=== PATIENT | female | born 1965 | race Caucasian/White ===

== ENCOUNTER 2017-02-06 08:00 | Outpatient (CLI) | payer BC | END 2017-02-06 08:01 | disposition home or self-care (01) | LOC: BICMAMMO 08:00 | PROVIDERS: ATTEND Family Medicine | DX: Z12.31 Encounter for screening mammogram for malignant neoplasm of breast (principal) | CPT/HCPCS: 77066; G0204; G0279 ==

== ENCOUNTER 2017-05-19 10:12 | Outpatient (CLI) | payer BC | END 2017-05-19 10:13 | disposition home or self-care (01) | LOC: BICRAD 10:12 | PROVIDERS: ATTEND Family Medicine | DX: S39.92XA Unspecified injury of lower back, initial encounter (principal) | CPT/HCPCS: 72220 ==

== ENCOUNTER 2017-06-23 14:14 | Outpatient (CLI) | payer BC | END 2017-06-23 14:15 | disposition home or self-care (01) | LOC: BICRAD 14:14 | PROVIDERS: ATTEND Family Medicine | DX: S32.10XD Unspecified fracture of sacrum, subsequent encounter for fracture with routine healing (principal) | CPT/HCPCS: 72220 ==

== ENCOUNTER 2018-02-09 11:22 | Outpatient (CLI) | payer BC | END 2018-02-09 11:23 | disposition home or self-care (01) | LOC: BICMAMMO 11:22 | PROVIDERS: ATTEND Family Medicine | DX: Z12.31 Encounter for screening mammogram for malignant neoplasm of breast (principal) | CPT/HCPCS: 77063; 77067 ==

== ENCOUNTER 2018-05-07 14:56 | Outpatient (CLI) | payer BC ==
--- NOTE | 2018-05-07 15:56 | ULT ---
RIGHT BREAST ULTRASOUND: Date: 05/07/18 HISTORY: Injury, right breast lump and skin discoloration. FINDINGS: Correlation is made to mammogram from same date. Sonographic evaluation of the region of palpable concern at the 11 o'clock position of the right stefani st demonstrates a 1.7 x 0.8 x 1.5 cm nonshadowing oval hyperechoic lesion, likely hematoma/contusion. IMPRESSION: BI-RADS Category 3 - Probably benign findings. A follow-up right breast ultrasound is recommended in 3 months. The facility will notify patient of need for additional imaging services. POS: OFF
--- NOTE | 2018-05-07 18:23 | MMO ---
Right Breast MAMMO Unilat Diag [facility]. CLINICAL HISTORY: Patient is 53 years old and is seen for diagnostic exam. The patient has no family history of breast cancer. The patient has no personal history of cancer. VIEWS: The views performed were: right craniocaudal with tomosynthesis; right mediolateral oblique with tomosynthesis; and right mediolateral. FILMS COMPARED: The present examination has been compared to prior imaging studies performed at [facility] on 01/31/2012, 02/01/2013, 02/02/2014, 02/03/2015, 02/06/2016, 09/13/2016, 02/06/2017, 02/09/2018 and 05/07/2018, and at [facility] on 09/07/2009, 10/12/2010 and 04/11/2011. MAMMOGRAM FINDINGS: There are scattered fibroglandular densities. There are no suspicious masses, calcifications or areas of architectural distortion. Ultrasound was performed. IMPRESSION: FINDING IN THE RIGHT BREAST REQUIRES ADDITIONAL EVALUATION. AN ULTRASOUND EXAM IS RECOMMENDED. THE RESULTS OF THIS EXAM WERE SENT TO THE PATIENT. ACR BI-RADS Category 0 - Incomplete: Need additional imaging evaluation. [facility] will notify the patient of the need for additional imaging services. MAMMOGRAPHY NOTE: 1. A negative mammogram report should not delay a biopsy if a dominant of clinically suspicious mass is present. 2. Approximately 10% to 15% of breast cancers are not detected by mammography. 3. Adenosis and dense breasts may obscure an underlying neoplasm.
== END 2018-05-07 14:57 | disposition home or self-care (01) ==
LOC: BICMAMMO 14:56
PROVIDERS: ATTEND Family Medicine
DX: N63.10 Unspecified lump in the right breast, unspecified quadrant (principal)
CPT/HCPCS: G0279

== ENCOUNTER 2018-06-01 08:56 | Outpatient (CLI) | payer BC ==
--- NOTE | 2018-06-01 09:48 | ULT ---
FUS Renal Bilateral STANDARD History: [D 30.01, angiomyolipoma of right kidney] Comparison: CT examination May 2016 Findings: Real-time grayscale and color evaluation of the kidneys and urinary bladder was performed. The right kidney measures 11.7 x 5.3 x 5.4 cm and left kidney measures 11 x 5.2 x 5.4 cm. There is a 0.6 x 0.8 cm hyperechoic mass superior pole right kidney corresponding to the known angiomyolipoma. T here is an exophytic left cortical hypodensity measuring 6 mm. Urinary bladder is unremarkable. Impression: 1. Slight interval size increase right superior renal cortical angiomyolipoma. 2. Hypodensity, exophytic, interpolar left kidney measuring 6 mm may reflect a complex cyst. Follow-u p ultrasound in 6 months is recommended.
== END 2018-06-01 08:57 | disposition home or self-care (01) ==
LOC: BICULT 08:56
PROVIDERS: ATTEND Urology
DX: D17.71 Benign lipomatous neoplasm of kidney (principal); N28.1 Cyst of kidney, acquired
CPT/HCPCS: 36415; 76770; 80048; 81001; 87086

== ENCOUNTER 2018-10-29 07:57 | Outpatient (CLI) | payer BC ==
--- NOTE | 2018-10-29 08:53 | ULT ---
LIMITED RIGHT BREAST ULTRASOUND: CLINICAL HISTORY: Short-term followup for prior breast injury manifestation which was inclusive of lump and posttraumat ic discoloration. FINDINGS: Localized sonographic imaging at the 11 o'clock location reveals resolution of prior focus of altered echotexture. There is no sonographic abnormality present. IMPRESSION: BIRADS 2: Benign Finding(s) Routine annual screening mammography (for women over age 40), benign findings. The patient should return to bilateral screening mammography which is due in 3 months based on data p rior screening mammogram. POS: OFF
== END 2018-10-29 07:58 | disposition home or self-care (01) ==
LOC: BICULT 07:57
PROVIDERS: ATTEND Family Medicine
DX: N63.11 Unspecified lump in the right breast, upper outer quadrant (principal); N64.89 Other specified disorders of breast

== ENCOUNTER 2019-02-11 11:46 | Outpatient (CLI) | payer BC ==
--- NOTE | 2019-02-11 12:38 | MMO ---
Bilateral MAMMO Bilat Screen [facility]. CLINICAL HISTORY: Patient is 53 years old and is seen for screening. The patient has no family history of breast cancer. The patient has no personal history of cancer. VIEWS: The views performed were: bilateral craniocaudal with tomosynthesis and bilateral mediolateral oblique with tomosynthesis. FILMS COMPARED: The present examination has been compared to prior imaging studies performed at [facility] on 02/09/2018, 05/07/2018 and 10/29/2018. This study has been interpreted with the assistance of computer-aided detection. MAMMOGRAM FINDINGS: There are scattered fibroglandular densities. There are no suspicious masses, suspicious calcifications, or new areas of architectural distortion. IMPRESSION: THERE IS NO MAMMOGRAPHIC EVIDENCE OF MALIGNANCY. A ROUTINE FOLLOW-UP MAMMOGRAM IN 1 YEAR IS RECOMMENDED. THE RESULTS OF THIS EXAM WERE SENT TO THE PATIENT. ACR BI-RADS Category 1 - Negative MAMMOGRAPHY NOTE: 1. A negative mammogram report should not delay a biopsy if a dominant of clinically suspicious mass is present. 2. Approximately 10% to 15% of breast cancers are not detected by mammography. 3. Adenosis and dense breasts may obscure an underlying neoplasm. Reported by: RHIANNA LAROSE MD Electonically Signed: [id number]
== END 2019-02-11 11:47 | disposition home or self-care (01) ==
LOC: BICMAMMO 11:46
DX: Z12.31 Encounter for screening mammogram for malignant neoplasm of breast (principal)
CPT/HCPCS: 77063; 77067

== ENCOUNTER 2020-04-28 13:02 | Outpatient (CLI) | payer BC ==
[2020-04-29 02:22] LABS: SARS-CoV-2 PCR by NAA Not Detected (NotDetected)
== END 2020-04-28 13:03 | disposition home or self-care (01) ==
LOC: LABBT 13:02
PROVIDERS: ATTEND Internal Medicine Gastroenterology
DX: Z20.822 Contact with and (suspected) exposure to COVID-19 (principal)
CPT/HCPCS: 87635; U0003; U0005

== ENCOUNTER → 2020-05-03 | Day surgery (SDC) | payer BC | LOC: SDC 07:51 | PROVIDERS: ATTEND Internal Medicine Gastroenterology | DX: T28.0XXA Burn of mouth and pharynx, initial encounter (principal); K21.9 Gastro-esophageal reflux disease without esophagitis; R63.5 Abnormal weight gain; Z68.34 Body mass index [BMI] 34.0-34.9, adult; Z87.891 Personal history of nicotine dependence; Z79.899 Other long term (current) drug therapy | CPT/HCPCS: 91034 ==

== ENCOUNTER 2020-05-30 17:34 | Outpatient (CLI) | payer BC ==
[2020-05-31 06:02] LABS: SARS-CoV-2 PCR by NAA Not Detected (NotDetected)
== END 2020-05-30 17:35 | disposition home or self-care (01) ==
LOC: LABBT 17:34
PROVIDERS: ATTEND Surgery
DX: Z01.812 Encounter for preprocedural laboratory examination (principal); K21.9 Gastro-esophageal reflux disease without esophagitis; K44.9 Diaphragmatic hernia without obstruction or gangrene; Z20.822 Contact with and (suspected) exposure to COVID-19
CPT/HCPCS: 87635; U0003; U0005

== ENCOUNTER → 2020-06-02 | Day surgery (SDC) | payer BC | LOC: SDC 08:33 | PROVIDERS: ATTEND Surgery | DX: K21.9 Gastro-esophageal reflux disease without esophagitis (principal); K44.9 Diaphragmatic hernia without obstruction or gangrene; R31.29 Other microscopic hematuria; Z79.899 Other long term (current) drug therapy; Z87.891 Personal history of nicotine dependence | CPT/HCPCS: 91010 ==

== ENCOUNTER 2020-06-21 08:57 | Outpatient (CLI) | payer BC ==
[2020-06-21 10:20] LABS: #Eosinphils 0.1 10x3/uL (0.0-0.5); #Monocytes 0.4 10x3/uL (0.0-1.1); #Neutrophils 2.3 10x3/uL (1.5-8.4); %Basophils 0.4 % (0.0-2.0); %Eosinophils 2.9 % (0.0-6.0); %Lymphocytes 39.3 % (18.0-47.0); %Monocytes 8.2 % (0.0-10.0); %Neutrophils 48.8 % (40.0-75.0); Hemoglobin 13.8 g/dL (12.0-15.5); Mean Corpuscular HGB CONC 33.3 g/dL (32.0-36.0); Mean Corpuscular Hemoglobin 28.6 pg (27.0-33.0); Mean Corpuscular Volume 86.1 fl (81.6-98.3); Mean Platelet Volume 10.7 fl (7.4-10.4); Platelet Count 216 10x3/uL (150-450); RBC Distribution Width 12.3 % (11.5-14.5); Red Blood Cell (RBC) Count 4.82 10x6/uL (3.90-5.03); White Blood Cell (WBC) Count 4.8 10x3/uL (3.5-10.5)
[2020-06-21 10:23] LABS: ALT (SGPT) 17 U/L (8-55); AST (SGOT) 15 U/L (5-34); Albumin 4.4 g/dL (3.5-5.0); Alkaline Phosphatase 58 U/L (40-110); Anion Gap 11 mmol/L (10-20); BUN (Urea Nitrogen) 10 mg/dL (9.8-20.1); Bilirubin, Total 0.3 mg/dL (0.2-1.2); Calc. Creatinine Clearance 0 mL/min (70-130); Calcium 9.2 mg/dL (7.8-10.44); Carbon Dioxide 26 mmol/L (22-29); Chloride 105 mmol/L (98-107); Globulin 2.5 g/dL (2.4-3.5); Glucose 90 mg/dL (70-105); Protein, Total 6.9 g/dL (6.0-8.3); Sodium 138 mmol/L (136-145)
[2020-06-21 18:20] LABS: SARS-CoV-2 PCR by NAA Not Detected (NotDetected)
== END 2020-06-21 08:58 | disposition home or self-care (01) ==
LOC: LABBT 08:57
PROVIDERS: ATTEND Surgery
DX: Z01.818 Encounter for other preprocedural examination (principal); K21.9 Gastro-esophageal reflux disease without esophagitis; Z20.822 Contact with and (suspected) exposure to COVID-19
CPT/HCPCS: 80053; 85025; 87635; 93005; 93010; U0003; U0005

== ENCOUNTER 2020-06-26 05:59 | Observation (INO) | payer BC ==
[2020-06-23 09:39] VITALS: BMI 34.1
[2020-06-26] MEDS ORDERED: Bupivacaine 0.25% HCL 30 ML VIAL ONE (06:38)
[2020-06-26] MEDS ORDERED: Lidocaine 1% w/Epinephrine 1:100K 20 ML VIAL ONE (06:38)
[2020-06-26] MEDS ORDERED: Fentanyl 100 MCG/2 ML VIAL ONE ×4 (06:44→11:14)
[2020-06-26] MEDS ORDERED: Lidocaine 2% Jelly 5 ML TUBE ONE (06:44)
[2020-06-26] MEDS ORDERED: Midazolam HCl 2 mg/2 ml Vial ONE (07:08)
[2020-06-26] MEDS ORDERED: Ondansetron PF 4 MG/2 ML Vial ONE (07:32)
[2020-06-26] MEDS ORDERED: Ketorolac Tromethamine 30 MG/ML VIAL ONE (07:32)
[2020-06-26] MEDS ORDERED: Lidocaine 1% PF 5 ML VIAL ONE (07:32)
[2020-06-26] MEDS ORDERED: Glycopyrrolate 0.2 MG/ML 5 ML SYRINGE ONE (07:32)
[2020-06-26] MEDS ORDERED: PHENYLEPHRINE-NS 100 MCG/ML 10 ML SYRINGE ONE (07:32)
[2020-06-26] MEDS ORDERED: ePHEDrine Sulfate 50 MG/10 ML VIAL ONE (07:32)
[2020-06-26] MEDS ORDERED: PROPOFOL 200 MG/20 ML VIAL ONE (07:32)
[2020-06-26] MEDS ORDERED: Rocuronium Bromide 10 MG/ML (10ML VIAL) ONE (07:32)
[2020-06-26] MEDS ORDERED: Dexamethasone 20 MG/5 ML VIAL ONE (07:32)
[2020-06-26] MEDS ORDERED: Hydrocodone-Acetamin 15 ML UDCUP PO PRN (08:55)
[2020-06-26] MEDS ORDERED: hydrALAZINE 20 MG/ML VIAL SLOW IVP PRN (08:55)
[2020-06-26] MEDS ORDERED: Morphine 4 MG/ML VIAL SLOW IVP PRN (08:55)
[2020-06-26] MEDS ORDERED: Morphine 2 MG/ML VIAL SLOW IVP PRN (08:55)
[2020-06-26] MEDS ORDERED: Dextrose 5% in Water 1,000 ML IV PRN (08:55)
[2020-06-26] MEDS ORDERED: diphenhydrAMINE 50 MG/ML VIAL IVP PRN (08:55)
[2020-06-26] MEDS ORDERED: Ondansetron PF 4 MG/2 ML Vial IVP PRN (08:55)
[2020-06-26] MEDS ORDERED: Dextrose 50% Abboject 50 ML SYRINGE SLOW IVP PRN (08:55)
[2020-06-26] MEDS ORDERED: Promethazine HCl 25 MG/ML VIAL IM PRN ×2 (08:55→09:13)
[2020-06-26] MEDS ORDERED: Promethazine HCl 25 MG/ML VIAL SLOW IVP PRN (09:13)
[2020-06-26] MEDS ORDERED: Ondansetron HCl/PF 4 MG/2 ML Vial IVP PRN (09:13)
[2020-06-26] MEDS ORDERED: Sodium Chloride 0.9% (PF) 10 ML VIAL FS PRN (09:30)
[2020-06-26] MEDS: D5 1/2 NS w/20 mEq KCL 1,000 ML IV SCH ×2 (12:20→20:37)
[2020-06-26] MEDS: Ketorolac Tromethamine 30 MG/ML VIAL IVP SCH ×3 (12:21→23:01)
[2020-06-26] MEDS: Pantoprazole 40 MG VIAL IVP SCH (12:21)
[2020-06-26] MEDS: CEFAZOLIN 2 GM in Premix Bag 1 BAG IVPB SCH ×2 (15:05→23:01)
[2020-06-26] MEDS: Acetaminophen 500 MG TAB PO PRN (23:58)
[2020-06-27] MEDS: D5 1/2 NS w/20 mEq KCL 1,000 ML IV SCH ×2 (03:16→09:57)
[2020-06-27] MEDS: Ketorolac Tromethamine 30 MG/ML VIAL IVP SCH ×2 (05:00→11:28)
[2020-06-27 05:24] LABS: #Monocytes 0.6 thou/uL (0.11-0.59); #Neutrophils 5.1 thou/uL (1.40-6.50); %Basophils 0.2 % (0.0-1.0); %Eosinophils 0.2 % (0.0-10.0); %Lymphocytes 26.2 % (21.0-51.0); %Monocytes 7.7 % (0.0-10.0); %Neutrophils 65.7 % (42.0-75.0); Hemoglobin 12.5 g/dL (12.0-16.0); Mean Corpuscular HGB CONC 33.7 g/dL (32.0-36.0); Mean Corpuscular Hemoglobin 29.8 pg (27.0-31.0); Mean Corpuscular Volume 88.5 fL (78.0-98.0); Mean Platelet Volume 8.7 fL (7.4-10.4); Platelet Count 196 thou/uL (130-400); RBC Distribution Width 11.3 % (11.5-14.5); White Blood Cell (WBC) Count 7.8 thou/uL (4.8-10.8)
[2020-06-27 05:44] LABS: Anion Gap 9 mmol/L (10-20); BUN (Urea Nitrogen) 6 mg/dL (9.8-20.1); Calc. Creatinine Clearance 117 mL/min (70-130); Calcium 8.7 mg/dL (7.8-10.44); Carbon Dioxide 26 mmol/L (22-29); Chloride 107 mmol/L (98-107); Glucose 111 mg/dL (70-105); Potassium 3.9 mmol/L (3.5-5.1); Sodium 138 mmol/L (136-145)
[2020-06-27] MEDS: Acetaminophen 500 MG TAB PO PRN (05:55)
[2020-06-27] MEDS ORDERED: Enoxaparin Sodium 40 MG/0.4 ML SYRINGE SC SCH (06:00)
[2020-06-27] MEDS: Pantoprazole 40 MG VIAL IVP SCH (09:48)
[2020-06-27 12:12] VITALS: BP 100/62; TEMP 98.2
[2020-06-28] MEDS ORDERED: Enoxaparin Sodium 40 MG/0.4 ML SYRINGE SC SCH (09:00)
== END 2020-06-27 12:00 | disposition home or self-care (01) ==
LOC: SDC 05:59 → SURG A 08:55 → INTOOBSV 08:55
PROVIDERS: ADMIT Surgery; ATTEND Surgery
PROC: 0DV44ZZ Restriction of Esophagogastric Junction, Percutaneous Endoscopic Approach (ICD-10-PCS; principal; 2020-06-26)
DX: K44.9 Diaphragmatic hernia without obstruction or gangrene (principal); K21.9 Gastro-esophageal reflux disease without esophagitis; Z87.891 Personal history of nicotine dependence; Z79.899 Other long term (current) drug therapy
CPT/HCPCS: 36415; 80048; 85025; 96372; 96374; 96375; 96376; C9113; G0378; J0690; J1100; J1650; J1885; J2250; J2405; J2704; J3010; J3480; S0020

== ENCOUNTER 2020-10-27 11:03 | Day surgery (SDC) | payer BC ==
[2020-10-26 11:44] VITALS: BMI 32.5
[2020-10-27] MEDS ORDERED: Scopolamine 1.5 mg/72 hour Patch ONE (12:29)
[2020-10-27] MEDS ORDERED: cefOXitin Sodium/Dextrose 2 GM/50 ML BAG ONE (12:35)
[2020-10-27] MEDS ORDERED: Lidocaine 1% w/Epinephrine 1:100K 30 ML VIAL ONE (12:46)
[2020-10-27] MEDS ORDERED: Bupivacaine 0.25% HCL 30 ML VIAL ONE (12:46)
[2020-10-27] MEDS ORDERED: Fentanyl 100 MCG/2 ML VIAL ONE (12:48)
[2020-10-27] MEDS ORDERED: Midazolam HCl 2 mg/2 ml Vial ONE (12:48)
[2020-10-27] MEDS ORDERED: Rocuronium Bromide 10 MG/ML (10ML VIAL) ONE (12:54)
[2020-10-27] MEDS ORDERED: ePHEDrine 50 MG/ML VIAL ONE (12:54)
[2020-10-27] MEDS ORDERED: Ondansetron PF 4 MG/2 ML Vial ONE (12:54)
[2020-10-27] MEDS ORDERED: Dexamethasone 20 MG/5 ML VIAL ONE (12:54)
[2020-10-27] MEDS ORDERED: Lidocaine 1% PF 5 ML VIAL ONE (12:54)
[2020-10-27] MEDS ORDERED: PROPOFOL 200 MG/20 ML VIAL ONE (12:54)
[2020-10-27] MEDS ORDERED: Ketorolac Tromethamine 30 MG/ML VIAL ONE (12:54)
[2020-10-27] MEDS ORDERED: SUGAMMADEX SODIUM 200 MG/2 ML VIAL ONE (13:32)
[2020-10-27] MEDS ORDERED: Morphine 2 MG/ML VIAL ONE (14:51)
[2020-10-27] MEDS ORDERED: HYDROcodone/Acetaminophen 5/325 mg Tablet ONE (14:52)
== END 2020-10-27 16:10 | disposition home or self-care (01) ==
LOC: SDC 11:03
PROVIDERS: ATTEND Surgery
PROC: 0FT44ZZ Resection of Gallbladder, Percutaneous Endoscopic Approach (ICD-10-PCS; principal; 2020-10-27)
DX: K80.10 Calculus of gallbladder with chronic cholecystitis without obstruction (principal); K83.8 Other specified diseases of biliary tract; K21.9 Gastro-esophageal reflux disease without esophagitis; Z79.890 Hormone replacement therapy; Z79.899 Other long term (current) drug therapy; Z98.890 Other specified postprocedural states; Z87.19 Personal history of other diseases of the digestive system; Z87.891 Personal history of nicotine dependence
CPT/HCPCS: 88304; J0690; J0694; J1100; J1885; J2250; J2270; J2405; J2704; J3010; J3490; S0020

== ENCOUNTER 2020-12-11 12:29 | Outpatient (CLI) | payer BC | END 2020-12-11 12:30 | disposition home or self-care (01) | LOC: BICULT 12:29 | PROVIDERS: ATTEND Urology | DX: D17.71 Benign lipomatous neoplasm of kidney (principal); R31.29 Other microscopic hematuria; N28.1 Cyst of kidney, acquired | CPT/HCPCS: 76770 ==

== ENCOUNTER 2022-11-28 12:42 | Outpatient (CLI) | payer BC | END 2022-11-28 12:43 | disposition home or self-care (01) | LOC: ULT 12:42 | PROVIDERS: ATTEND Urology | DX: D30.01 Benign neoplasm of right kidney (principal); N28.1 Cyst of kidney, acquired; R31.29 Other microscopic hematuria | CPT/HCPCS: 76770 ==

== ENCOUNTER 2023-11-17 08:11 | Outpatient (CLI) | payer BC ==
[2023-11-17] MEDS ORDERED: Iopamidol 370 76% 100 ML VIAL ONE (10:48)
== END 2023-11-17 08:12 | disposition home or self-care (01) ==
LOC: BICCT 08:11
PROVIDERS: ATTEND Urology
DX: D30.01 Benign neoplasm of right kidney (principal); N28.1 Cyst of kidney, acquired; R31.29 Other microscopic hematuria; N39.3 Stress incontinence (female) (male); K76.89 Other specified diseases of liver
CPT/HCPCS: 74178; Q9967